=== PATIENT | male | born 1985 | race Caucasian/White ===

== ENCOUNTER → 2017-08-13 | Outpatient (CLI) | payer BC ==
[~2017-08-13] VITALS: Ht 195.6 cm; Wt 99.8 kg
[~2017-08-13] MED LIST: FISH OIL 500 M1 EAC2 PO; L-LYSINE1000 M1 PO; LEXAPRO20 MG PO; MEN'S MULTI-VI1 EACH PO; PEPCID40 MG PO; VALTREX1000 MG PO; ZANTAC150 MG PO
== END | disposition home or self-care (01) ==
LOC: AMB 08:12
PROC: 0DB48ZX Excision of Esophagogastric Junction, Via Natural or Artificial Opening Endoscopic, Diagnostic (ICD-10-PCS; principal; 2017-08-13)
DX: K22.10 Ulcer of esophagus without bleeding (principal); K44.9 Diaphragmatic hernia without obstruction or gangrene; K21.0 Gastro-esophageal reflux disease with esophagitis; F41.9 Anxiety disorder, unspecified; Z91.040 Latex allergy status
CPT/HCPCS: 88305; J2250